=== PATIENT | male | born 1940 | race Caucasian/White ===

== ENCOUNTER 2017-11-23 11:36 | Day surgery (SDC) | payer MEDICARE, BC ==
[2017-11-20 08:55] VITALS: BMI 32.5
[~2017-11-23 11:36] MED LIST: SODIUM CHLORIDE 0.9% 1,000 ML IV SCH; ceFAZolin IN SWFI 2 GM/20 ML SYRINGE IVP ONE
[2017-11-23] MEDS ORDERED: SODIUM CHLORIDE 0.9% 500 ML IV ONE (12:24)
[2017-11-23 12:37] VITALS: PULSE 70; RESP 16
[2017-11-23] MEDS ORDERED: LIDOCAINE 1% INJ 10MG/ML (20 ML MDV) SQ ONE (13:04)
[2017-11-23] MEDS ORDERED: LIDOCAINE 1% INJ 10MG/ML (20 ML MDV) ONE (13:05)
--- NOTE | 2017-11-23 13:28 | P.PCN ---
Preoperative Diagnosis: Loop monitor implant Primary physicians: Dr. London Shellfish Shucker: Dr. Freed Indication: Paroxysmal atrial fibrillation, sick sinus syndrome, bradycardia Patient was brought to the EP lab in a fasting state. Written informed consent was obtained prior to the procedure. The left pectoral area was prepped and draped per protocol. Intravenous antibiotic was administered preoperatively. A subcutaneous Loop monitor was implanted successfully and the wound was closed per protocol. The device was programmed to detect significant zaid- arrhythmic and tachy-arrhythmic events, per protocol. Device and programming details: A. fib detection protocol Patient underwent EP procedure under conscious sedation/moderate sedation, monitoring of the level of consciousness and physiologic parameters including but not limited to vital signs and oxygenation. Patient tolerated the procedure well without any acute complications. Start time: 1304 Stop time: 1315 Disposition: same day
[2017-11-23 14:41] VITALS: BP 124/84
== END 2017-11-23 13:55 | disposition home or self-care (01) ==
LOC: CATHEP 11:36
PROVIDERS: ATTEND Internal Medicine Clinical Cardiac Electrophysiology
DX: I48.0 Paroxysmal atrial fibrillation (principal); I49.5 Sick sinus syndrome; I10 Essential (primary) hypertension; Z82.49 Family history of ischemic heart disease and other diseases of the circulatory system; Z79.890 Hormone replacement therapy; Z79.51 Long term (current) use of inhaled steroids; Z79.899 Other long term (current) drug therapy
CPT/HCPCS: 33282; C1764; J2001; J0690

== ENCOUNTER → 2020-09-07 | Outpatient (CLI) | payer MEDICARE, BC | END | disposition home or self-care (01) | LOC: LABWHC1 15:40 | PROVIDERS: ATTEND Internal Medicine | DX: Z20.822 Contact with and (suspected) exposure to COVID-19 (principal); R09.81 Nasal congestion | CPT/HCPCS: U0003; C9803 ==

== ENCOUNTER → 2020-11-11 | Outpatient (CLI) | payer MEDICARE, BC ==
--- NOTE | 2020-11-11 20:54 | CONS ---
CONSULTATION DATE OF SERVICE: 11/11/2020 This 80-year-old gentleman has been evaluated in Sleep Center for obstructive sleep apnea-hypopnea syndrome. HISTORY OF PRESENT ILLNESS/SLEEP WAKE EVALUATION: The patient has been diagnosed with obstructive sleep apnea about 20 years ago. At that time, he was started on treatment with CPAP. Then he underwent UPPP and nasal surgery by Dr. Abbott, improved his breathing and sleep and stopped using CPAP. About 10 years ago, he started to have some sleep problems, had a sleep study done, but it was negative for sleep apnea, he was not treated. SLEEP SCHEDULE: At the present time, his sleep schedule from 11 p.m. to 6:30/8:30 a.m. FALLING ASLEEP: Sometimes he has problems with falling asleep, although no TV in bedroom. DURING SLEEP: He sleeps on the side position and on the stomach. He wakes up from sleep 2 times with nocturia. DURING THE DAY/SLEEP WAKE EVALUATION: He complains some tiredness and sometimes sleepiness during the day. He wakes up tired. Has difficulties paying attention, falling asleep during the day, has problems with memory. He takes naps in the morning and afternoon. [place] Sleepiness Scale always 4. No history of hypnagogic hallucinations, sleep paralysis or cataplexy. I reviewed the results of previous sleep study and polysomnogram in 2011, showed apnea- hypopnea index 8.1, and so it was mild obstructive sleep apnea. PAST MEDICAL HISTORY: Atrial fibrillation, hyperlipidemia, hypothyroidism. PAST SURGICAL HISTORY: Status post UPPP and nasal surgery. MEDICATIONS: Aricept 5 mg once a day, 20 mg once a day, 100 mg once a day, Clonazepam 0.5 mg once a day, Flomax 0.4 mg a day, levothyroxine 150 mcg a day. Pravastatin 20 mg once a day. SOCIAL HISTORY: Negative for smoking or using alcohol at the present time. FAMILY HISTORY: Family history of heart problems. REVIEW OF SYSTEMS: Awakenings from sleep, tiredness during the day. PHYSICAL EXAMINATION: GENERAL: A pleasant gentleman without distress. BP 116/78, HR 88, RR 15, height 5 feet 11 inches, weight 254.6, temperature 96.5, oxygen saturation at room air 97%. Body mass index 35.4. HEENT: PERRLA, EOMI. Oropharynx extremely low position of soft palate. Mallampati IV. NECK: Wide 17 inches in circumference. Neck supple, no JVD. Thyroid is not palpable. LUNGS: Clear to percussion and to auscultation. Good air exchange. No wheezing or rhonchi. HEART: S1, S2 regular. No murmurs, gallops, or rubs. ABDOMEN: Obese. Soft and nontender. Bowel sounds are present. No organomegaly appreciated. EXTREMITIES: No clubbing or cyanosis. SLIP CASTER: Awake, alert, and oriented X3. Cranial nerves 2 to 7 intact. There is no fasciculation or atrophy. noted. No focal deficits observed. IMPRESSION: 1. History of obstructive sleep apnea in the past status post uvulopalatopharyngoplasty and nasal surgery. Presently, wakes up from sleep several times with nocturia, extremely low position of soft palate, Mallampati 4, wide neck 17 inches in circumference. Patient feels tiredness and sleepiness during the day. Obstructive sleep apnea-hypopnea syndrome. 2. History of atrial fibrillation. 3. Hypothyroidism. 4. Hyperlipidemia. 5. Status post uvulopalatopharyngoplasty and nasal surgery. PLAN: 1. Polysomnography for evaluation of patient's breathing during sleep. 2. CPAP/BiPAP titration if sleep study confirms obstructive sleep apnea-hypopnea syndrome. 3. Preferable position during sleep on the side. 4. No driving if patient feels any sleepiness. 5. I will see patient for follow up visit to explain results of testing and following plan. Thank you very much for referring this patient for consultation. Sincerely, Juan Palma MD, PhD, FAASM Diplomat of [employer] [employer] [employer] Warp Splitter of [facility] [place] MMODL / IJN: [id number] /
== END | disposition home or self-care (01) ==
LOC: SLEEP 13:23
PROVIDERS: ATTEND Internal Medicine
DX: G47.33 Obstructive sleep apnea (adult) (pediatric) (principal); I48.91 Unspecified atrial fibrillation; E03.9 Hypothyroidism, unspecified; E78.5 Hyperlipidemia, unspecified; Z79.899 Other long term (current) drug therapy; Z79.890 Hormone replacement therapy; Z98.890 Other specified postprocedural states
CPT/HCPCS: 99211

== ENCOUNTER → 2020-11-20 | Outpatient (CLI) | payer MEDICARE, BC ==
--- NOTE | 2020-11-20 10:15 | US ---
EXAMINATION TYPE: US kidneys/renal and bladder DATE OF EXAM: 11/20/2020 COMPARISON: NONE CLINICAL HISTORY: R31.0 Gross hematuria. Hematuria EXAM MEASUREMENTS: Right Kidney: 9.7 x 4.6 x 4.4 cm Left Kidney: 11.5 x 5.4 x 3.8 cm Right Kidney: No hydronephrosis or masses seen Left Kidney: No hydronephrosis or masses seen Bladder: wnl Bilateral Jets seen: Small left ureteral jet seen only. There is no evidence for hydronephrosis at this point in time. No nephrolithiasis is seen. No stacie s are identified. The urinary bladder is anechoic. IMPRESSION: Unremarkable kidneys.
== END | disposition home or self-care (01) ==
LOC: RADUSWWP 09:04
PROVIDERS: ATTEND Internal Medicine
DX: R31.0 Gross hematuria (principal)
CPT/HCPCS: 76770

== ENCOUNTER → 2020-12-07 | Day surgery (SDC) | payer MEDICARE, BC ==
[2020-12-04 11:31] VITALS: BMI 34.8
[~2020-12-07] MED LIST changes: +LIDOCAINE 1% INJ 10MG/ML (20 ML MDV) ONE; +SODIUM CHLORIDE 0.9% 1,000 ML IV ONE; -ceFAZolin IN SWFI 2 GM/20 ML SYRINGE IVP ONE
[2020-12-07 07:00] LABS: Basophils # (A) 0.1 k/uL (0-0.2); Basophils % (A) 1 %; Eosinophils # (A) 0.5 k/uL (0-0.7); Eosinophils % (A) 10 %; HCT 41.5 % (39.0-53.0); Lymphocytes # (A) 1.7 k/uL (1.0-4.8); Lymphocytes % (A) 34 %; MCH 33.4 pg (25.0-35.0); MCHC 33.7 g/dL (31.0-37.0); MCV 99.1 fL (80.0-100.0); Mean Platelet Volume 8.6; Monocytes # (A) 0.4 k/uL (0-1.0); Monocytes % (A) 9 %; Neutrophils # (A) 2.2 k/uL (1.3-7.7); Neutrophils % (A) 44 %; Platelet Count 224 k/uL (150-450); RBC 4.19 m/uL (4.30-5.90); RDW 13.1 % (11.5-15.5); WBC 4.9 k/uL (3.8-10.6)
[2020-12-07 07:01] VITALS: RESP 16
[2020-12-07 07:13] LABS: African American GFR (CKD) >90 (>60 ml/min/1.73 sqM); Anion Gap 8 mmol/L; Blood Urea Nitrogen 14 mg/dL (9-20); Carbon Dioxide 22 mmol/L (22-30); Chloride 109 mmol/L (98-107); Glucose 96 mg/dL (74-99); Non-African American GFR(CKD) 87 (>60 ml/min/1.73 sqM); Potassium 4.1 mmol/L (3.5-5.1); Sodium 139 mmol/L (137-145)
[2020-12-07 10:07] VITALS: TEMP 97.6
[2020-12-07 14:42] VITALS: BP 126/65; PULSE 65
== END ==
LOC: CATHEP 06:10
PROVIDERS: ATTEND Internal Medicine Clinical Cardiac Electrophysiology
DX: I48.0 Paroxysmal atrial fibrillation (principal); Z53.8 Procedure and treatment not carried out for other reasons; I49.5 Sick sinus syndrome; E78.5 Hyperlipidemia, unspecified; Z79.01 Long term (current) use of anticoagulants; I10 Essential (primary) hypertension; Z82.49 Family history of ischemic heart disease and other diseases of the circulatory system; Z79.890 Hormone replacement therapy; Z79.899 Other long term (current) drug therapy; F32.9 Major depressive disorder, single episode, unspecified; K21.9 Gastro-esophageal reflux disease without esophagitis; Z98.890 Other specified postprocedural states
CPT/HCPCS: 80048; 85025

== ENCOUNTER → 2020-12-15 | Outpatient (CLI) | payer MEDICARE, BC ==
--- NOTE | 2020-12-15 15:00 | CT ---
EXAMINATION TYPE: CT brain wo con DATE OF EXAM: 12/15/2020 HISTORY: visual changes, memory loss, no head injury CT DLP: 1054.2 mGycm. Automated Exposure Control for Dose Reduction was Utilized. TECHNIQUE: CT scan of the head is performed without contrast. COMPARISON: None. FINDINGS: There is no acute intracranial hemorrhage or midline shift identified. There is mild to m oderate diffuse ventricular and sulcal prominence consistent with diffuse age-related cerebral atroph y. There is mild to moderate low-attenuation in the periventricular white matter consistent with chr onic small vessel ischemic change. Bilateral basal ganglia calcifications. Mild mucosal thickening i nvolving ethmoid sinuses left greater than right. Globes are intact bilaterally. IMPRESSION: No acute intracranial hemorrhage or midline shift. There is [id number] diffuse ag e-related cerebral atrophy and chronic small vessel ischemic change noted.
== END | disposition home or self-care (01) ==
LOC: RADCTMAIN 14:30
PROVIDERS: ATTEND Internal Medicine
DX: G31.9 Degenerative disease of nervous system, unspecified (principal); H53.8 Other visual disturbances
CPT/HCPCS: 70450

== ENCOUNTER → 2021-03-10 | Outpatient (CLI) | payer MEDICARE, BC ==
--- NOTE | 2021-03-11 08:34 | SFUN ---
SLEEP CENTER FOLLOW UP NOTE DATE OF SERVICE: 03/10/2021 This 80-year-old gentleman has been followed in Sleep Center for treatment of obstructive sleep apnea-hypopnea syndrome. The patient recently had a polysomnogram and CPAP titration, and I explained the results of the sleep studies to the patient in detail. Subsequently he was started on treatment with CPAP, and today is his first visit on CPAP therapy. The patient feels better with the CPAP, but sometimes he still has some awakenings from sleep. [place] Sleepiness Scale is 6 today, which is normal. I checked CPAP unit. Range of the pressure is 5 to 7 with average pressure 6.9. Usage is 30/30 nights and 29/30 nights for more than 4 hours, with average usage 7.6 hours per night. Leak is 20 L/minute, which is borderline. Apnea-hypopnea index is 4.2. RAMP is off. MEDICATIONS: Aricept, clonazepam, Flomax, pravastatin, levothyroxine. PHYSICAL EXAMINATION: GENERAL: Pleasant patient in no distress. VITAL SIGNS: BP 128/82, HR 88, RR 15, weight 237.4, temperature 97.4, oxygen saturation at room air 97%, HEENT: PERRLA, EOMI, evaluation of oropharynx showed tongue protrudes midline. Extremely low position of soft palate; Mallampati IV. NECK: Supple, no JVD. Thyroid is not palpable. LUNGS: Clear to percussion and to auscultation. Good air exchange. No wheezing or rhonchi. HEART: S1, S2 regular. No murmurs, gallops, or rubs. ABDOMEN: Soft and nontender. Bowel sounds are present. No organomegaly appreciated. EXTREMITIES: No clubbing or cyanosis. DENTIST/OWNER: Awake, alert, and oriented X3. Cranial nerves 2 to 7 intact. There is no fasciculation or atrophy. noted. No focal deficits observed. IMPRESSION: 1. Obstructive sleep apnea-hypopnea syndrome. The patient demonstrated great compliance with treatment, benefitting from treatment. 2. History of atrial fibrillation. 3. Hypothyroidism. 4. Hyperlipidemia. 5. Status post UPPP and nasal surgery. PLAN: 1. I explained to the patient that the machine should stay lower than his head to prevent water condensation to the nose. 2. I changed RAMP from off position to automatic regimen. 3. I changed regimen of the machine to the pressure 5 to 10. 4. Patient will continue to use PAP equipment every night for the whole night. 5. Sleep hygiene with regular time in bed for at least 7-1/2 to 8 hours. 6. Precautions related to driving. No driving if feeling sleepiness. 7. I will maintain all necessary prescription for PAP supplies including mask, tube, filters. 8. Watching weight. 9. Follow-up visit in 6 months or earlier if patient has any problems. Thank you very much for allowing me to participate in the management of your patient. Sincerely, Juan Palma MD, PhD, FAASM Diplomat of [employer] [employer] Sleep Medicine Board of [place] [employer] Foundry Engineer of [facility] [place] MMODL / IJN: [id number] /
== END | disposition home or self-care (01) ==
LOC: SLEEP 14:30
PROVIDERS: ATTEND Internal Medicine
DX: G47.33 Obstructive sleep apnea (adult) (pediatric) (principal); E03.9 Hypothyroidism, unspecified; E78.5 Hyperlipidemia, unspecified; Z86.79 Personal history of other diseases of the circulatory system; Z98.890 Other specified postprocedural states

== ENCOUNTER 2021-06-03 12:29 | Day surgery (SDC) | payer MEDICARE, BC ==
[2021-06-03 13:12] LABS: Basophils % (A) 1 %; Eosinophils # (A) 0.2 k/uL (0-0.7); Eosinophils % (A) 3 %; HGB 14.5 gm/dL (13.0-17.5); Lymphocytes # (A) 1.6 k/uL (1.0-4.8); Lymphocytes % (A) 25 %; MCH 33.3 pg (25.0-35.0); MCV 100.7 fL (80.0-100.0); Mean Platelet Volume 7.9; Monocytes # (A) 0.4 k/uL (0-1.0); Monocytes % (A) 6 %; Neutrophils # (A) 4.1 k/uL (1.3-7.7); Neutrophils % (A) 64 %; Platelet Count 235 k/uL (150-450); RBC 4.37 m/uL (4.30-5.90); RDW 13.1 % (11.5-15.5); WBC 6.4 k/uL (3.8-10.6)
[2021-06-03 13:30] LABS: Calcium 9.4 mg/dL (8.4-10.2); Potassium 4.1 mmol/L (3.5-5.1)
[2021-06-03] MEDS ORDERED: LIDOCAINE 1% INJ 10MG/ML (20 ML MDV) ONE ×2 (14:59→15:02)
[2021-06-03] MEDS ORDERED: PHENYLEPHRINE-0.9% NACL SYG 1,000 MCG/10 ML SYRINGE ONE (15:02)
[2021-06-03] MEDS ORDERED: PROPOFOL 10 MG/ML 20 ML VIAL IV ONE (15:02)
[2021-06-03] MEDS ORDERED: SUCCINYLCHOLINE CHLORIDE 100 MG/5 ML SYR IV ONE (15:02)
[2021-06-03] MEDS ORDERED: ISOPROTERENOL 250 MCG/1.25 ML SYR IV ONE (15:02)
[2021-06-03] MEDS ORDERED: MIDAZOLAM 2 MG/2 ML VIAL ONE (15:02)
[2021-06-03] MEDS ORDERED: PROTAMINE SULFATE 10 MG/ML 5 ML VIAL IV ONE (15:02)
[2021-06-03] MEDS ORDERED: METOPROLOL TARTRATE 5 MG/5 ML VIAL IVP ONE (15:02)
[2021-06-03] MEDS ORDERED: HEPARIN SODIUM,PORCINE 10,000 UNIT/ML 1 ML VIAL ONE (15:02)
[2021-06-03] MEDS ORDERED: fentaNYL (PF) 50 MCG/ML 2 ML AMP ONE (15:02)
[2021-06-03] MEDS ORDERED: IV FLUID CONTINUATION 1,000 ML IV ONE (15:07)
[2021-06-03] MEDS ORDERED: HEPARIN SOD,PORK IN 0.45% NACL 25,000 UNIT in 0.45% NACL 1 250ML.BAG IV ONE (15:35)
[2021-06-03] MEDS ORDERED: LIDOCAINE 1% INJ 10MG/ML (20 ML MDV) SQ ONE (15:45)
[2021-06-03] MEDS ORDERED: IOPAMIDOL-370 100ML BTL INJ ONE (18:10)
[2021-06-03] MEDS ORDERED: [UNRECOGNIZED DRUG - OTHER] NASAL PRN (18:18)
[2021-06-03] MEDS ORDERED: CROMOLYN NASAL PRN (18:18)
[2021-06-03] MEDS ORDERED: ACETAMINOPHEN IV (For NPO) 1,000 MG in EMPTY BAG 1 BAG IVPB ONE (18:19)
[2021-06-03] MEDS ORDERED: ACETAMINOPHEN TAB 325 MG TAB PO PRN (18:19)
--- NOTE | 2021-06-03 18:29 | P.EPPROC ---
- EP Procedure Note Electrophysiology Procedure Note: PROCEDURE A. fib ablation DIAGNOSIS Atrial fibrillation, symptomatic, refractory to therapy, paroxysmal and frequent Underlying sick sinus syndrome RESULT No left atrial appendage mass seen on intracardiac echo Successful A. fib ablation/pulmonary vein isolation of all veins using cryo-abl ation Left atrial septum ablation Complete entrance block in all 4 veins confirmed No evidence for phrenic nerve injury Esophageal deflection YES / NO PROCEDURE DETAILS Patient was brought to the EP lab in a fasting state after obtaining written informed consent. Procedure performed under general anesthesia Esophagus was intubated. Esophageal temperature monitoring with circa catheter. Esophageal deflection with an endoscope to avoid hypothermia of the esophagus. After initial muscle relaxant use, muscle relaxants were not given thereafter in order to assess phrenic nerve during procedure. Patient prepped and draped as per protocol Cryo ablation-set up with standard preparation of the cryoablation tools done. Femoral Venous access obtained on the right and left groins and sheaths placed Diagnostic catheters for the high right atrium, phrenic nerve stimulation and pacing, His bundle, coronary sinus placed Intracardiac echo catheter placed. Long sheath placed in the right atrium Left and right transseptal catheterization performed under intracardiac echo guidance. Intravenous heparin with aCT above 300 Later, catheter positioning and balloon positioning in the left atrium and pulmonary veins, under intracardiac echo guidance Diagnostic EP study with coronary sinus pacing and recording Baseline measurements: Sinus cycle length 922 ms, UT 404, QRS 98 and UT interval 150 ms AH 52, HV 59 Sinus node recovery times at 600, 540 ms were 1243, 05/02/2000 and 1220. AV node Wenckebach block 420 ms Transseptal catheterization performed RA pressure 03/06/8 LA pressure 12/12/12 Transseptal catheterization performed with standard sheath. This was a very difficult transseptal catheterization lasting for over an hour. It repeated attempts were made and the difficulty arose on account of the following conditions #1 extreme clockwise rotation of the heart #2 the IVC RA relationship was very unusual and they appear to be evaluated at the IVC RA junction and the catheters were preferentially directed to was the tricuspid valve rather than to the mid RA and SVC #3 the interatrial septum was hypermobile and the sheath/transseptal needle with slight upwards very close to the upper limbus, closer to the aorta. Finally using the sheath, the dilator and a transseptal needle while, the mid septum was punctured and the dilator was passed over it followed by the sheath Later this was exchanged for a cryocatheter The cryoablation sheath was then placed with an over the wire exchange without any acute complications. The venous anatomy was complex particularly the left superior, the left inferior and the right superior veins Each vein had multiple branches Given the size of the pulmonary veins, 2 drive lesions were given for each vein, each vein being isolated separately In addition the left atrial septum was ablated with the cryo-balloon abutting the anterior afshan/posterior LA septum The cryoablation balloon was placed in the office of each pulmonary vein and all 4 pulmonary veins were isolated. IV dye was injected to confirm occlusion. Goal: achieve complete occlusion of the pulmonary vein, achieve -30 degrees C at 30 seconds and achieve -40 degrees C at 60 seconds and a time to effect of less than 60 seconds. If not, the balloon was repositioned to obtain this result After completion of Cryoblation with durations from 180-240 seconds, entrance block was confirmed with the Attain circular catheter in a roving fashion around the antrum of the pulmonary veins Phrenic nerve pacing was performed from the SVC, right innominate vein area and diaphragm voltage was monitored. Diaphragmatic contractions were also monitored manually for strength of contraction. At the end of the procedure the Achieve catheter was once again used to check for entrance block Phrenic nerve stimulation was performed to confirm diaphragmatic stimulation the end of the procedure Cine fluoroscopy was performed at the very end of the procedure to confirm movement of both diaphragms with inspiration and expiration At the end of the procedure the patient was extubated Venous sheaths were removed and hemostasis assured with a closure device PROCEDURES PERFORMED Diagnostic EP study CS pacing and recording Left and right transseptal catheterization Catheter the mapping of the tachycardia Intracardiac echocardiography Pulmonary vein isolation with transseptal and comprehensive EPS, [id number] Drug infusion, +[id number] Linear ablation, left atrium, [id number]
[2021-06-03] MEDS: SODIUM CHLORIDE 0.9% 1,000 ML IV SCH (19:39)
[2021-06-03] MEDS ORDERED: DONEPEZIL 5 MG TAB PO SCH (21:00)
[2021-06-04] MEDS: SODIUM CHLORIDE 0.9% 1,000 ML IV SCH (00:26)
[2021-06-04 04:07] VITALS: RESP 16; TEMP 98.3
[2021-06-04] MEDS ORDERED: LEVOTHYROXINE 75 MCG TAB PO SCH (06:30)
[2021-06-04] MEDS ORDERED: PANTOPRAZOLE 40 MG TABLET PO SCH (07:30)
[2021-06-04 08:37] VITALS: BP 110/70; PULSE 59
[2021-06-04] MEDS ORDERED: RIVAROXABAN 20 MG TAB PO SCH (09:00)
[2021-06-04] MEDS ORDERED: TAMSULOSIN 0.4 MG CAP.ER.24H PO SCH (09:00)
== END 2021-06-04 11:05 | disposition home or self-care (01) ==
LOC: CATHEP 12:29 → 6NMEDSUR 18:05 → CATHEP 06-04 11:05
PROVIDERS: ATTEND Internal Medicine Clinical Cardiac Electrophysiology
DX: I48.19 Other persistent atrial fibrillation (principal); I49.5 Sick sinus syndrome; Z20.822 Contact with and (suspected) exposure to COVID-19
CPT/HCPCS: 93623; 93656; 93657; 80048; 84443; 85025; 87635; C1894 ×2; C1769 ×5; C1760; C1730 ×2; C1759; C1893; C1733; C1766; J2001; J0131; Q9967; J1644

== ENCOUNTER → 2021-06-30 | Outpatient (CLI) | payer MEDICARE, BC ==
--- NOTE | 2021-06-30 18:32 | SFUN ---
SLEEP CENTER FOLLOW UP NOTE DATE OF SERVICE: 06/30/2021 This 80-year-old gentleman has been followed in Sleep Center for treatment of obstructive sleep apnea-hypopnea syndrome. The patient is trying to use his CPAP equipment but has difficulties with that. He feels that the pressure is too high for him. Sometimes he opens his mouth during sleep and opens his lips. [place] Sleepiness Scale today is 4. He tried a full-face mask, but it did not work for him. At present he is trying to use a nasal pillow mask with a chinstrap. I checked his CPAP unit. Range of the pressure is 5 to 10, average pressure 8.6. The patient used it during the last month for only 4 nights, and only one night for more than 4 hours. Leak is 23 L/minute. Apnea-hypopnea index is 12.5, which is above normal. RAMP is on automatic regimen; that is what I changed it to during previous visit. During the previous visit, the patient used it on a regular basis and apnea- hypopnea index was 4.2, which was normal. MEDICATIONS: 1. Aricept 5 mg once a day. 2. Clonazepam 0.5 mg as needed. 3. Flomax 0.4 mg once a day. 4. Levothyroxine 50 mcg once a day. 5. Omeprazole 20 mg twice a day. 6. Xarelto 20 mg once a day. PHYSICAL EXAMINATION: GENERAL: Pleasant patient in no distress. VITAL SIGNS: BP 118/80, HR 96, RR 18, weight 241.8, temperature 96.8, oxygen saturation at room air 96%. HEENT: PERRLA, EOMI, evaluation of oropharynx showed tongue protrudes midline. Extremely low position of soft palate; Mallampati IV. NECK: Supple, no JVD. Thyroid is not palpable. LUNGS: Clear to percussion and to auscultation. Good air exchange. No wheezing or rhonchi. HEART: S1, S2 regular. No murmurs, gallops, or rubs. ABDOMEN: Slightly obese. EXTREMITIES: No clubbing or cyanosis. MELTER LOADER: Awake, alert, and oriented X3. Cranial nerves 2 to 7 intact. There is no fasciculation or atrophy. noted. No focal deficits observed. IMPRESSION: 1. Obstructive sleep apnea-hypopnea syndrome. Patient has difficulties with the CPAP; feels the pressure is too high. 2. History of atrial fibrillation. 3. Hypothyroidism. 4. Hyperlipidemia. 5. Status post uvulopalatopharyngoplasty and nasal surgery. PLAN: 1. I changed the regimen of RAMP to 40 minutes. 2. I decreased pressure in the machine to range of pressure 5 to 7. 3. Patient will continue to use PAP equipment every night for the whole night. 4. Sleep hygiene with regular time in bed for at least 7-1/2 to 8 hours. 5. Precautions related to driving. No driving if feeling sleepiness. 6. I will maintain all necessary prescription for PAP supplies including mask, tube, filters. 7. Watching weight. 8. Follow-up visit in two months or earlier if patient has any problems. Thank you very much for allowing me to participate in the management of your patient. Sincerely, Juan Palma MD, PhD, FAASM Diplomat of [employer] [place] [employer] Specialties Sleep Medicine Board of [employer] [place] Board of Internal Medicine Sound Effects Person [facility] [place] MMODL / ANUN: [id number] /
== END | disposition home or self-care (01) ==
LOC: SLEEP 16:37
PROVIDERS: ATTEND Internal Medicine
DX: G47.33 Obstructive sleep apnea (adult) (pediatric) (principal); E03.9 Hypothyroidism, unspecified; E78.5 Hyperlipidemia, unspecified; Z86.79 Personal history of other diseases of the circulatory system; Z98.890 Other specified postprocedural states

== ENCOUNTER → 2021-07-21 | Outpatient (CLI) | payer MEDICARE, BC ==
--- NOTE | 2021-07-21 21:05 | SFUN ---
SLEEP CENTER FOLLOW UP NOTE DATE OF SERVICE: 07/21/2021 This 80-year-old gentleman has been followed in Sleep Center for treatment of obstructive sleep apnea-hypopnea syndrome. During his previous visit, the patient had significant difficulties with CPAP and used it only for 4 nights, and only one night for more than 4 hours. At that time I discussed with the patient the necessity of treatment and adjusted pressure down. During this visit, the patient explained that he is feeling better while using his CPAP, compared to the previous visit, but he still has some episodes when he wakes up from sleep and has difficulties breathing because it is difficult to exhale the pressure. I checked his CPAP unit. Range of the pressure is 5 to 7. Usage is 18/30 nights and 14/30 nights for more than 4 hours. Average usage is 6.3 hours per night. Average pressure is 7 cm of water. Leak is 20 L/minute, which is acceptable. Apnea-hypopnea index is 2.4, which is normal. The patient tried different styles of nasal mask, including a nasal mask covering the nose, and two different styles of nasal pillow mask. He tried a chinstrap, but he still had episodes of passing air through his lips. [place] Sleepiness Scale today is 2. MEDICATIONS: 1. Aricept 5 mg once a day. 2. Clonazepam 0.5 mg as needed. 3. Flomax 0.4 mg once a day. 4. Levothyroxine 50 mcg once a day. 5. Omeprazole 20 mg twice a day. 6. Xarelto 20 mg once a day. PHYSICAL EXAMINATION: GENERAL: Pleasant patient in no distress. VITAL SIGNS: BP 149/90, HR around 100, RR 16, temperature 97.4, oxygen saturation at room air 96%. Weight 240.6 pounds. HEENT: PERRLA, EOMI, evaluation of oropharynx showed tongue protrudes midline. Low position of soft palate; Mallampati IV. NECK: Supple, no JVD. Thyroid is not palpable. LUNGS: Clear to percussion and to auscultation. Good air exchange. No wheezing or rhonchi. HEART: S1, S2 regular. No murmurs, gallops, or rubs. ABDOMEN: Soft and nontender. Bowel sounds are present. No organomegaly appreciated. EXTREMITIES: No clubbing or cyanosis. ASSISTANT CASE MANAGER: Awake, alert, and oriented X3. Cranial nerves 2 to 7 intact. There is no fasciculation or atrophy. noted. No focal deficits observed. IMPRESSION: 1. Obstructive sleep apnea-hypopnea syndrome. The patient improved his compliance compared to the previous visit, from 4 nights a month up to 18 nights per month. He still has episodes of difficulties exhaling. Apnea-hypopnea index is in normal range at 2.4. 2. History of atrial fibrillation. 3. Hypothyroidism. 4. Hyperlipidemia. 5. Status post 2 UPPP and nasal surgery. PLAN: 1. I changed the pressure in the machine down to 5 cm of water. 2. Patient will continue to use PAP equipment every night for the whole night. 3. Sleep hygiene with regular time in bed for at least 7-1/2 to 8 hours. 4. Precautions related to driving. No driving if feeling sleepiness. 5. I will maintain all necessary prescription for PAP supplies including mask, tube, filters. 6. Watching weight. 7. Follow-up visit in 6 months or earlier if patient has any problems. Thank you very much for allowing me to participate in the management of your patient. Sincerely, Juan Palma MD, PhD, FAASM Diplomat of [place] [employer] Sleep Medicine Board of [place] [employer] Internal Medicine Him Manager of [facility] [place] MMODL / ANUN: [id number] /
== END | disposition home or self-care (01) ==
LOC: SLEEP 15:53
PROVIDERS: ATTEND Internal Medicine
DX: G47.33 Obstructive sleep apnea (adult) (pediatric) (principal); E03.9 Hypothyroidism, unspecified; E78.5 Hyperlipidemia, unspecified; Z98.890 Other specified postprocedural states; Z86.79 Personal history of other diseases of the circulatory system

== ENCOUNTER → 2022-11-24 | Outpatient (CLI) | payer MEDICARE, BC ==
--- NOTE | 2022-11-27 21:11 | MR ---
EXAMINATION TYPE: MR lumbar spine wo con DATE OF EXAM: 11/24/2022 COMPARISON: None HISTORY: 82-year-old male Lower back pain, BLE radiculopathy x 2 months. TECHNIQUE: Multiplanar, multisequence images of the lumbar spine were acquired without IV contrast. FINDINGS: Degenerated dextroconvex curvature of the lumbar spine. Severe disc/endplate degenerative change jackelyn cially towards the left side of concavity with associated edematous Modic type I endplate change. Dis c osteophyte complexes are present at multiple levels. Additional hypertrophic facet arthropathy and ligamentum flavum thickening. Conus medullaris is normal. Vertebral body heights are preserved and alignment is maintained. No suspicious bone marrow replaceme nt. At T11-T12, there is moderate degenerative disc disease with disc bulge and ligamentum flavum thicken ing. Moderate spinal canal stenosis with abutment and flattening of both the dorsal and ventral cord. At T12-L1, no canal or foraminal stenosis. At L1-L2, no canal or foraminal stenosis. At L2/L3, there is diffuse disc bulge with hypertrophic facet arthropathy greater towards the left. C hanges result in moderate left and [id number]-ma-twcnsxab right neuroforaminal stenosis. There is moderate to severe focal spinal canal stenosis. At L3-L4, disc osteophyte complex with ligamentum flavum thickening and facet arthropathy. Changes re sult in focal moderate spinal canal stenosis with moderate to severe left and moderate right neurofor aminal stenosis. At L4-L5, disc osteophyte complex with hypertrophic facet arthropathy and ligamentum flavum thickenin g. Changes result in focal severe spinal canal stenosis with moderate to severe bilateral neuroforami nal stenosis. At L5-S1, disc bulge with ligamentum flavum thickening and hypertrophic facet arthropathy. Changes re sult in mild spinal canal stenosis. Moderate to severe right neuroforaminal stenosis. Moderate left n euroforaminal stenosis. Ectatic upper abdominal aorta 2.8 cm. IMPRESSION: 1. Moderate to advanced multilevel spondylotic change as well as a degenerated dextroconvex scoliotic curvature. No vertebral compression collapse or malalignment. 2. Changes result in severe focal spinal canal stenosis at L4-L5, moderate to severe at L2-L3. Modera te at L3-L4 and T11-T12. Mild at L5-S1. 3. Variable bilateral neuroforaminal stenoses as outlined above.
== END | disposition home or self-care (01) ==
LOC: RADMRIMAIN 10:55
PROVIDERS: ATTEND Orthopaedic Surgery
DX: M47.26 Other spondylosis with radiculopathy, lumbar region (principal); M99.73 Connective tissue and disc stenosis of intervertebral foramina of lumbar region; M48.062 Spinal stenosis, lumbar region with neurogenic claudication
CPT/HCPCS: 72148

== ENCOUNTER 2023-01-17 05:43 | Day surgery (SDC) | payer MEDICARE, BC ==
[2023-01-16 08:53] VITALS: BMI 32.5
[2023-01-17] MEDS ORDERED: LACTATED RINGERS 1,000 ML IV SCH (05:56)
[2023-01-17] MEDS ORDERED: SODIUM CHLORIDE 0.9% 1,000 ML IV SCH ×2 (05:56)
[2023-01-17] MEDS ORDERED: SODIUM CHLORIDE 0.9% 1,000 ML IV ONE (06:06)
[2023-01-17 06:34] VITALS: RESP 16; TEMP 97.7
[2023-01-17] MEDS ORDERED: ceFAZolin 1 GM in SODIUM CHLORIDE 0.9% IRRIG BTL 250 ML IRRIGATION PRN (07:00)
[2023-01-17] MEDS ORDERED: MIDAZOLAM 2 MG/2 ML VIAL IV PRN (07:00)
[2023-01-17] MEDS ORDERED: HYDROmorphone 0.5 MG/0.5 ML SYRINGE IVP PRN (07:00)
[2023-01-17] MEDS ORDERED: fentaNYL (PF) 50 MCG/ML 2 ML AMP ONE (07:28)
[2023-01-17] MEDS ORDERED: MIDAZOLAM 2 MG/2 ML VIAL ONE (07:28)
[2023-01-17] MEDS ORDERED: diphenhydrAMINE 50 MG/ML 1 ML VIAL ONE (07:28)
[2023-01-17] MEDS ORDERED: PROPOFOL 10 MG/ML 20 ML VIAL IV ONE (07:28)
[2023-01-17] MEDS ORDERED: ceFAZolin 1,000 MG in SODIUM CHLORIDE 0.9% IRRIG BTL 250 ML IRRIGATION ONE (07:41)
[2023-01-17] MEDS ORDERED: IOPAMIDOL-370 100ML BTL INJ ONE (07:47)
[2023-01-17] MEDS ORDERED: LIDOCAINE 1% INJ 10MG/ML (20 ML MDV) ONE (07:54)
[2023-01-17] MEDS ORDERED: LIDOCAINE 1% INJ 10MG/ML (20 ML MDV) SQ ONE ×3 (08:34→10:48)
[2023-01-17] MEDS ORDERED: ACETAMINOPHEN TAB 325 MG TAB PO PRN (10:22)
--- NOTE | 2023-01-17 11:10 | P.EPPROC ---
- EP Procedure Note Electrophysiology Procedure Note: Diagnosis Nonischemic cardiomyopathy Left ventricular ejection fraction 30-35% despite successful management of atrial fibrillation and frequent PVCs Congestive heart failure class II Underlying sick sinus syndrome No improvement in LV systolic function despite maintaining sinus rhythm after A. 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 Written informed consent was obtained prior to the procedure. The left upper extremity venogram was performed patent left subclavian and axillary venous system Conscious sedation provided by anesthesia team IV antibiotics administered. Local anesthesia administered. A 4 cm incision made in the pectoral area. Subfascial pocket made. Venous access obtained Venous sheaths placed. Leads placed in the right heart Atrial lead position the right atrial appendage. 52 cm atrial lead screwed in the right atrial appendage, model #5076 P waves 4.5 mV, pacing impedance 513 ohms and pacing threshold 0.7 V at 0.4 ms RV lead position in the RV apex. The of for ICD lead, Medtronic model #6930 5M, 62 cm in length position the RV apex Left bundle lead positioned deep in the septum. Pace morphology, typical right bundle branch block morphology. Stable stim-V6 equals 65 ms Pacing impedance 684 ohms and pacing threshold 0.5 V at 0.4 ms Biventricular ICD, Medtronic, cobalt heart failure MRI DF4 device Antibiotic pouch placed Wound closed in 3 layers and dressed per protocol
--- NOTE | 2023-01-17 11:11 | P.EPPROC ---
- EP Procedure Note Electrophysiology Procedure Note: Procedure: Loop explant under sedation and local anesthesia. Diagnosis: Loop monitor at [facility] Patient was brought to the EP lab in a fasting state. Written informed consent was obtained prior to the procedure. The subcutaneous device was successfully explanted under local anesthesia. Preoperative antibiotics were administered. The wound was closed in layers and dressed per protocol. Result: Successful loop monitor explantation.
[2023-01-17] MEDS ORDERED: ACETAMINOPHEN IV (For NPO) 1,000 MG in EMPTY BAG 1 BAG IVPB ONE (12:00)
--- NOTE | 2023-01-17 12:39 | XR ---
EXAMINATION TYPE: XR chest 1V portable DATE OF EXAM: 01/17/2023 COMPARISON: 05/07/2021 HISTORY: Lead placement check TECHNIQUE: Single frontal view of the chest is obtained. FINDINGS: There is no focal air space opacity, pleural effusion, or pneumothorax seen. The cardiac silhouette size is within normal limits. The osseous structures are intact. Cardiac device seen. Mu ltiple leads are noted. No sizable pneumothorax. Proximal lead overlying the right atrium and suspect there is a biventricular additional leads. Biapical pleural thickening. IMPRESSION: 1. No evidence of pneumothorax.
[2023-01-17] MEDS ORDERED: carvediloL 3.125 MG TAB PO SCH (17:30)
[2023-01-17 19:25] VITALS: BP 110/62; PULSE 65
[2023-01-18] MEDS ORDERED: AMIODARONE 200 MG TAB PO SCH (09:00)
== END 2023-01-17 16:00 | disposition home or self-care (01) ==
LOC: CATHEP 05:43
PROVIDERS: ATTEND Internal Medicine Clinical Cardiac Electrophysiology
DX: I42.8 Other cardiomyopathies (principal); I50.22 Chronic systolic (congestive) heart failure; I11.0 Hypertensive heart disease with heart failure; I48.91 Unspecified atrial fibrillation; I45.10 Unspecified right bundle-branch block; I44.7 Left bundle-branch block, unspecified; E07.9 Disorder of thyroid, unspecified; K21.9 Gastro-esophageal reflux disease without esophagitis; Z88.8 Allergy status to other drugs, medicaments and biological substances; Z79.01 Long term (current) use of anticoagulants; Z79.890 Hormone replacement therapy; Z79.899 Other long term (current) drug therapy
CPT/HCPCS: 33225; 33249; 71045; C1769 ×2; C1892 ×2; C1730; C1898; C1895; C1882; J2250; J1200; J0690; J2001; J3010; J0131; J2704; Q9967